=== PATIENT | male | born 1985 | race Two or more races ===

== ENCOUNTER 2021-06-02 18:55 | Emergency (ER) | payer OTHER ==
[~2021-06-02] VITALS: Ht 175.3 cm; Wt 109.3 kg
[2021-06-02] MEDS ORDERED: COZAAR100 MG PO (19:15)
[2021-06-02] MEDS ORDERED: TAMS0.4C PO (22:54)
[2021-06-02] MEDS ORDERED: IBU800 MG PO (22:54)
== END 2021-06-03 02:40 | disposition home or self-care (01) ==
LOC: ER 18:55
DX: N20.0 Calculus of kidney (principal); N39.0 Urinary tract infection, site not specified; I10 Essential (primary) hypertension